=== PATIENT | male | born 1970 | race Caucasian/White ===

== ENCOUNTER 2023-10-23 12:09 | Emergency (ER) | payer BC, OTHER ==
[2023-10-23] MEDS: Lidocaine 1% 30 ML SDV INJECT ONE (13:10)
== END 2023-10-23 13:27 | disposition home or self-care (01) ==
LOC: VM.ED 12:09
DX: S51.012A Laceration without foreign body of left elbow, initial encounter (principal); I10 Essential (primary) hypertension; E78.00 Pure hypercholesterolemia, unspecified; E11.9 Type 2 diabetes mellitus without complications; E66.9 Obesity, unspecified; K21.9 Gastro-esophageal reflux disease without esophagitis; Z79.899 Other long term (current) drug therapy; Z79.4 Long term (current) use of insulin; Z79.82 Long term (current) use of aspirin
CPT/HCPCS: 12001; 99283; J3490